=== PATIENT | female | born 1955 | race Two or more races ===

== ENCOUNTER 2023-07-21 04:30 | Day surgery (SDC) | payer OTHER ==
[2023-07-17 13:53] LABS: PH,URINE 6.5 (5.0-8.0); URINE APPEARANCE Clear; URINE BILIRRUBIN Negative (NEGATIVE); URINE BLOOD Negative; URINE COLOR Yellow; URINE GLUCOSE Negative (NEGATIVE); URINE LEUKOCYTE Trace; URINE NITRATE Negative; URINE PROTEIN Negative (NEGATIVE)
[2023-07-17 13:57] LABS: URINE BACTERIA 18.8 uL (0.0-1933); URINE EPITHELIAL CELLS 2.9 uL (0.0-38.8); URINE RBC 5.7 uL (0.0-20.8); URINE WBC 4.7 uL (0.0-23.2)
[2023-07-17 13:58] LABS: HEMATOCRIT 44.6 % (36.0-45.00); HEMOGLOBIN 14.9 g/dL (12.0-15.00); MEAN CELL VOLUME 93.4 fL (80.00-100.00); MEAN CORPUSCULAR HEMOGLOBIN 31.2 pg (27.00-32.0); MEAN CORPUSCULAR HGB CONC 33.4 g/dl (32.0-36.0); PLATELET COUNT 270 K/uL (150-450); RED BLOOD COUNT 4.77 M/uL (4.00-6.00); RED CELL DISTRIBUTION WIDTH 14.1 % (11.5-14.5)
[2023-07-17 14:23] LABS: ALBUMIN 3.4 gm/dL (3.4-5.0); BILIRUBIN TOTAL 0.27 mg/dL (0.3-1.2); CALCIUM 8.8 mg/dL (8.5-10.1); CREATININE SERUM 0.59 mg/dL (0.55-1.02); GFR 100.77; GLOBULINA 3.2 G/DL (2.4-3.5); POTASSIUM 3.91 mEq/L (3.5-5.1); TOTAL PROTEIN 6.6 gm/dL (6.4-8.2)
[2023-07-17 14:33] LABS: INR 0.97; PARTIAL THROMBOPLASTIN TIME 25.8 SECONDS (22.0-34.0); PROTHROMBIN TIME 10.2 SECONDS (9.0-11.5)
[~2023-07-21 04:30] MED LIST: ATACAND16 MG PO; ATORVASTATIN CA20 MG PO; DICY20TA PO; ZEGERID 40 MG1 EACH PO
== END 2023-07-21 13:40 | disposition home or self-care (01) ==
LOC: CIR.AMB 04:30
PROVIDERS: ATTEND Surgery
DX: K40.90 Unilateral inguinal hernia, without obstruction or gangrene, not specified as recurrent (principal); Z20.822 Contact with and (suspected) exposure to COVID-19; E78.5 Hyperlipidemia, unspecified; I10 Essential (primary) hypertension; K21.9 Gastro-esophageal reflux disease without esophagitis
CPT/HCPCS: 49505; C1781

== ENCOUNTER 2023-11-26 10:39 | Emergency (ER) | payer OTHER ==
[~2023-11-26] VITALS: Ht 152.4 cm; Wt 50.8 kg
[2023-11-26] MEDS ORDERED: ATACAND16 MG PO (11:52)
[2023-11-26] MEDS ORDERED: LIPITOR20 MG PO (11:52)
[2023-11-26] MEDS ORDERED: OMEPRAZOLE-BIC1 EAC1 PO (11:53)
[2023-11-26] MEDS ORDERED: ACETAMINOPHEN WITH CODEINE 1 UDTAB TABLET PO STA (12:35)
[2023-11-26 12:49] LABS: HEMATOCRIT 43.6 % (36.0-45.00); HEMOGLOBIN 14.9 g/dL (12.0-15.00); MEAN CELL VOLUME 91.5 fL (80.00-100.00); MEAN CORPUSCULAR HEMOGLOBIN 31.2 pg (27.00-32.0); MEAN CORPUSCULAR HGB CONC 34.1 g/dl (32.0-36.0); PLATELET COUNT 258 K/uL (150-450); RED BLOOD COUNT 4.76 M/uL (4.00-6.00); RED CELL DISTRIBUTION WIDTH 14.6 % (11.5-14.5)
[2023-11-26 13:09] LABS: URINE APPEARANCE Clear; URINE BILIRRUBIN Negative (NEGATIVE); URINE BLOOD Negative; URINE COLOR Yellow; URINE LEUKOCYTE Negative; URINE NITRATE Negative; URINE PROTEIN Negative (NEGATIVE)
[2023-11-26 13:13] LABS: URINE BACTERIA 16.3 uL (0.0-1933); URINE EPITHELIAL CELLS 2.7 uL (0.0-38.8); URINE RBC 6.1 uL (0.0-20.8); URINE WBC 2.4 uL (0.0-23.2)
[2023-11-26 13:16] LABS: URINE GLUCOSE 100 MG/DL (NEGATIVE)
[2023-11-26 13:35] LABS: CALCIUM 9.2 mg/dL (8.5-10.1); CREATININE SERUM 0.72 mg/dL (0.55-1.02); GFR 80.08; POTASSIUM 3.97 mEq/L (3.5-5.1)
== END 2023-11-26 15:21 | disposition home or self-care (01) ==
LOC: ER 10:39
PROVIDERS: General Practice
DX: R10.31 Right lower quadrant pain (principal); Q63.2 Ectopic kidney